=== PATIENT | male | born 1955 | race Caucasian/White ===

== ENCOUNTER 2018-12-17 23:15 | Emergency (ER) | payer OTHER, SELFPAY ==
[2018-12-17 23:16] VITALS: BP 164/84; PULSE 63; RESP 18; TEMP 36.8; O2SAT 96; BMI 31.1
--- NOTE | 2018-12-17 23:26 | RAD_ITS ---
STUDY: X-RAY CHEST REASON FOR EXAM: Male, 63 years old. Chest pain TECHNIQUE: 2 view COMPARISON: None. FINDINGS: The lungs are clear and expanded. There is no demonstrated pleural abnormality. Normal size heart. Normal mediastinum and topher. Normal visualized pulmonary arteries. Normal visualized aortic arch and descending thoracic aorta. Normal visualized thoracic spine. Normal visualized ribs, clavicles, and shoulders. There is no demonstrated abnormality of the visualized soft tissue structures of the upper abdomen. RAD/Chest PA and Lateral IMPRESSION: Normal x-ray examination of the chest. No acute findings in the lungs Electronically Signed: Merlin Mast MD at 0:03 EDT Tel , Service support ,
--- NOTE | 2018-12-17 23:27 | ED.VISSUMM ---
- ER Visit Summary Date of Service: 12/17/18 Chief Complaint: Right-sided chest pain History of Present Illness: The patient is a 63 M who presents for severe right-sided chest pain starting earlier today. Patient has had a cough for 3 months, and his right side has started hurting recently. Today he was shoveling gravel and felt a cracking sensation, now having worse pain. Pain is improved if he stands up. Worse with any movement, breathing, coughing, laughing or any other motion that makes his rib cage move. Patient denies any shortness of breath, fever, or any other complaints. He states he has been through 3 rounds of antibiotics by his doctor for the 3-month of cough and has had a chest x-ray but no scan of his chest. He has no coronary artery disease. Has a history of asthma but no history of COPD. No history of DVT or PE. No recent travel or surgery, and no personal history of cancer. Patient has Parkinson's disease. He does not smoke. He took ibuprofen without relief of the pain. Physical Examination: Vital signs: afebrile, hemodynamically stable, no hypoxia on room air General: well nourished, well developed, in no distress, appears uncomfortable, standing straight up and not moving much Skin: warm, dry, no rash, no pallor HEENT: normocephalic and atraumatic; PERRL, EOMI, moist mucous membranes Cardiovascular: regular rate and rhythm without murmurs, no peripheral edema, 2+ pulses all distal extremities Respiratory: Shallow inspirations, lungs are clear to auscultation bilaterally, no rales, rhonchi or wheezing, tenderness along the right lateral chest wall, no contusions, no deformities, no flail chest Abdominal: Abdomen is soft, nontender with normoactive bowel sounds, no guarding or rebound, no masses MSK: Moves all extremities, no deformities, normal strength Neuro: Awake and alert, oriented ?4. No facial droop, sensation and motor function intact and symmetric Test Results: Abnormal Lab Results 12/17/18 12/17/18 12/17/18 23:35 23:35 23:35 WBC 9.4 RBC 5.04 Hgb 14.0 Hct 43.2 MCV 85.7 MCH 27.8 MCHC 32.4 RDW 14.1 RDW Differential 43.6 Plt Count 168 MPV 11.2 Immature Gran % (Auto) 0.100 Neut % (Auto) 73.8 H Lymph % (Auto) 17.8 L [place] % (Auto) 6.5 Eos % (Auto) 1.6 Baso % (Auto) 0.2 Absolute Neuts (auto) 6.9 Absolute Lymphs (auto) 1.67 Total Counted Not Reportable D-Dimer Quant (PE/DVT) 0.30 Sodium 140 Potassium 3.9 Chloride 109 H Carbon Dioxide 28.0 Anion Gap 3 L BUN 29 H Creatinine 0.94 Estim Creat Clear Calc 88.29 Est GFR (MDRD) Af Amer 104 Est GFR (MDRD) Non-Af 86 BUN/Creatinine Ratio 30.9 H Glucose 104 Calcium 8.6 Medications Given Discontinued Medications Hydrocodone Bitart/Acetaminophen ([place] 5mg-325mg) 1 tablet PO X1 ONE Stop: 12/18/18 01:05 Last Admin: 12/18/18 01:29 Dose: 1 tablet Sodium Chloride () 1,000 mls @ 999 mls/hr IV .Q1H1M ONE Stop: 12/18/18 00:26 Last Admin: 12/17/18 23:35 Dose: 999 mls/hr Ketorolac Tromethamine (Toradol) 15 mg IV X1 ONE Stop: 12/17/18 23:28 Last Admin: 12/17/18 23:35 Dose: 15 mg Emergency Department Course and Treatment: Patient is afebrile, 96% on room air and has a normal respiratory rate. He does appear uncomfortable, with pain with breathing or any movement of his chest wall. Patient was given IV fluids and Toradol for symptomatic relief. Patient's labs were consistent with mild dehydration, but no leukocytosis or other abnormalities. Chest x-ray was obtained to look for pneumonia or pneumothorax. Differential also includes PE or malignancy, given the prolonged nature of the cough not responding to multiple rounds of outpatient antibiotic treatments. D-dimer was negative, effectively ruling out pulmonary embolism, as patient is low risk per Well's criteria. Patient's chest x-ray showed no infiltrates, pneumothorax, masses or nodules that would be concerning for pneumonia or malignancy. Patient had improvement in his pain after the Toradol. He was given [place] for additional pain relief. Patient will continue ibuprofen at home for mild to moderate pain and he was given [place] to use for severe pain. Patient was instructed to follow-up with his doctor in 3 to 5 days if not improving. He will return if any worsening of his condition. Treatment Plan: [] Disposition: [] Impression: Right sided chest wall strain This note was generated with [employer] dictation software. It may contain incorrect words, spelling, and punctuation that were not noted in review of the chart prior to signing ED Disposition - Plan for ED Patient: Disposition: Home or Assisted Living Instructions: ED Strain Chest Wall Prescriptions: Hydrocodone Bitart/Apap 5-325 [[place] 5MG-325MG] 1 tab PO Q6H PRN PRN 5 Days #15 tab PRN Reason: Pain Referrals: NOT,DEFINED [NON-STAFF] - 3-5 Days if not improving Additional Instructions: Please continue using ibuprofen for mild to moderate pain and you may use the [place] for severe pain. Make sure you are comfortable breathing to help prevent any respiratory infection. If at any time you develop severe worsening pain, fever, severe cough, shortness of breath, new chest pain, dizziness or lightheadedness, or if you have any other concerns, return immediately to the emergency department for another evaluation.
--- NOTE | 2018-12-17 23:30 | ED.DCSUM_ITS ---
- ER Visit Summary Date of Service: 12/17/18 Chief Complaint: Right-sided chest pain History of Present Illness: The patient is a 63 M who presents for severe right- sided chest pain starting earlier today. Patient has had a cough for 3 months, and his right side has started hurting recently. Today he was shoveling gravel and felt a cracking sensation, now having worse pain. Pain is improved if he stands up. Worse with any movement, breathing, coughing, laughing or any other motion that makes his rib cage move. Patient denies any shortness of breath, fever, or any other complaints. He states he has been through 3 rounds of antibiotics by his doctor for the 3-month of cough and has had a chest x-ray but no scan of his chest. He has no coronary artery disease. Has a history of asthma but no history of COPD. No history of DVT or PE. No recent travel or surgery, and no personal history of cancer. Patient has Parkinson's disease. He does not smoke. He took ibuprofen without relief of the pain. Physical Examination: Vital signs: afebrile, hemodynamically stable, no hypoxia on room air General: well nourished, well developed, in no distress, appears uncomfortable, standing straight up and not moving much Skin: warm, dry, no rash, no pallor HEENT: normocephalic and atraumatic; PERRL, EOMI, moist mucous membranes Cardiovascular: regular rate and rhythm without murmurs, no peripheral edema, 2+ pulses all distal extremities Respiratory: Shallow inspirations, lungs are clear to auscultation bilaterally, no rales, rhonchi or wheezing, tenderness along the right lateral chest wall, no contusions, no deformities, no flail chest Abdominal: Abdomen is soft, nontender with normoactive bowel sounds, no guarding or rebound, no masses MSK: Moves all extremities, no deformities, normal strength Neuro: Awake and alert, oriented ?4. No facial droop, sensation and motor function intact and symmetric Test Results: Abnormal Lab Results 12/17/18 12/17/18 12/17/18 23:35 23:35 23:35 WBC 9.4 RBC 5.04 Hgb 14.0 Hct 43.2 MCV 85.7 MCH 27.8 MCHC 32.4 RDW 14.1 RDW Differential 43.6 Plt Count 168 MPV 11.2 Immature Gran % (Auto) 0.100 Neut % (Auto) 73.8 H Lymph % (Auto) 17.8 L [place] % (Auto) 6.5 Eos % (Auto) 1.6 Baso % (Auto) 0.2 Absolute Neuts (auto) 6.9 Absolute Lymphs (auto) 1.67 Total Counted Not Reportable D-Dimer Quant (PE/DVT) 0.30 Sodium 140 Potassium 3.9 Chloride 109 H Carbon Dioxide 28.0 Anion Gap 3 L BUN 29 H Creatinine 0.94 Estim Creat Clear Calc 88.29 Est GFR (MDRD) Af Amer 104 Est GFR (MDRD) Non-Af 86 BUN/Creatinine Ratio 30.9 H Glucose 104 Calcium 8.6 Medications Given Discontinued Medications Hydrocodone Bitart/Acetaminophen ([place] 5mg-325mg) 1 tablet PO X1 ONE Stop: 12/18/18 01:05 Last Admin: 12/18/18 01:29 Dose: 1 tablet Sodium Chloride () 1,000 mls @ 999 mls/hr IV .Q1H1M ONE Stop: 12/18/18 00:26 Last Admin: 12/17/18 23:35 Dose: 999 mls/hr Ketorolac Tromethamine (Toradol) 15 mg IV X1 ONE Stop: 12/17/18 23:28 Last Admin: 12/17/18 23:35 Dose: 15 mg Emergency Department Course and Treatment: Patient is afebrile, 96% on room air and has a normal respiratory rate. He does appear uncomfortable, with pain with breathing or any movement of his chest wall. Patient was given IV fluids and Toradol for symptomatic relief. Patient's labs were consistent with mild dehydration, but no leukocytosis or other abnormalities. Chest x-ray was obtained to look for pneumonia or pneumothorax. Differential also includes PE or malignancy, given the prolonged nature of the cough not responding to multiple rounds of outpatient antibiotic treatments. D-dimer was negative, effectively ruling out pulmonary embolism, as patient is low risk per Well's criteria. Patient's chest x-ray showed no infiltrates, pneumothorax, masses or nodules that would be concerning for pneumonia or malignancy. Patient had improvement in his pain after the Toradol. He was given [place] for additional pain relief. Patient will continue ibuprofen at home for mild to moderate pain and he was given [place] to use for severe pain. Patient was instructed to follow-up with his doctor in 3 to 5 days if not improving. He will return if any worsening of his condition. Treatment Plan: [] Disposition: [] Impression: Right sided chest wall strain This note was generated with [employer] dictation software. It may contain incorrect words, spelling, and punctuation that were not noted in review of the chart prior to signing ED Disposition - Plan for ED Patient: Disposition: Home or Assisted Living Instructions: ED Strain Chest Wall Prescriptions: Hydrocodone Bitart/Apap 5-325 [[place] 5MG-325MG] 1 tab PO Q6H PRN PRN 5 Days #15 tab PRN Reason: Pain Referrals: NOT,DEFINED [NON-STAFF] - 3-5 Days if not improving Additional Instructions: Please continue using ibuprofen for mild to moderate pain and you may use the [place] for severe pain. Make sure you are comfortable breathing to help prevent any respiratory infection. If at any time you develop severe worsening pain, fever, severe cough, shortness of breath, new chest pain, dizziness or lightheadedness, or if you have any other concerns, return immediately to the emergency department for another evaluation.
[2018-12-17] MEDS: Ketorolac 15 MG/ML Vial IV (23:35)
[2018-12-17] MEDS: 0.9% Normal Saline 1,000 ML 999 ML IV (23:35)
[2018-12-17 23:44] LABS: Absolute Lymphocyte Count 1.67 X10^3/ul (0.83-4.51); Absolute Neutrophil Count 6.9 X10^3/uL (2.0-7.7); Basophil# 0.02 X10^3/uL; Basophil% 0.2 % (0-1); Eosinophil# 0.15 X10^3/uL; Eosinophils% 1.6 % (0-5); Hematocrit 43.2 % (40-54); Lymphocyte # 1.67 X10^3/ul (4.0); Lymphocyte % 17.8 % (19-41); Mean Corp Hgb Conc 32.4 g/gl (32-36); Mean Corpuscular Hgb 27.8 pg (27.0-32.0); Mean Corpuscular Volume 85.7 fL (80-94); Mean Platelet Vol. 11.2 fl (6.2-12.0); Monocyte# 0.61 X10^3/uL; Monocyte% 6.5 % (0-10); Neutrophil % 73.8 % (47-70); Platelet Count 168 K/mm3 (150-450); RBC Distribution Width CV 14.1 % (11.6-14.6); RBC Distribution Width SD 43.6 fl (35.1-43.9); Red Blood Count 5.04 M/mm3 (4.6-6.2); White Blood Count 9.4 K/mm3 (4.4-11.0)
[2018-12-17 23:46] LABS: POSITIVE COUNT NO; POSITIVE DIFFERENTIAL NO; POSITIVE MORPHOLOGY NO
[2018-12-17 23:58] LABS: Anion Gap 3 (5-15); BUN 29 mg/dL (7-18); BUN/Creat Ratio 30.9 RATIO (10-20); Calcium,Total 8.6 mg/dL (8.5-10.1); Chloride 109 mmol/L (98-107); Creatinine, Serum 0.94 mg/dL (0.70-1.30); EST Glomerular Filtration Rate 86 mL/min (>60); Est Glom Filt Rate - Afr Amer 104 mL/min (>60); Estimated Creatinine Clearance 88.29 ml/min; Glucose 104 mg/dL (74-106); Potassium 3.9 mmol/L (3.5-5.1); Sodium Level 140 mmol/L (136-145)
[2018-12-18] MEDS: HYDROcodone Bitartrate/Apap 5/325 Tablet PO (01:29)
[2018-12-18 01:34] VITALS: BP 140/79; PULSE 58; RESP 17; O2SAT 98
--- NOTE | 2018-12-18 01:41 | ED.RN ---
PT GIVEN WRITTEN AND VERBAL DISCHARGE INSTRUCTIONS AND HOME GOING PRESCRIPTIONS. PT EDUCATED ON USE AND SIDE EFFECTS OF PRESCRIBED MEDICATION, AND NOT TO DRIVE WHEN TAKING IT. PT VERBALIZES UNDERSTANDING AND DENIES ANY FURTHER QUESTIONS. IV D/C AND COVERED WITH 2X2 GAUZE AND PAPER TAPE. PT DRESSES SELF AND LEAVES DEPT WITH .
== END 2018-12-18 01:42 | disposition home or self-care (01) ==
PROVIDERS: Emergency Provider Emergency Medicine; Family Provider Family Medicine; PCP Family Medicine
DX: S29.011A Strain of muscle and tendon of front wall of thorax, initial encounter (principal); Y93.H1 Activity, digging, shoveling and raking; Y93.9 Activity, unspecified; Y92.89 Other specified places as the place of occurrence of the external cause; Y99.9 Unspecified external cause status; J45.909 Unspecified asthma, uncomplicated; G20 Parkinson's disease
CPT/HCPCS: 71046; 80048; 85025; 85379; 96361; 96374; 99285; J7030; A4216